=== PATIENT | female | born 1980 | race Caucasian/White ===

== ENCOUNTER 2016-12-29 12:12 | Inpatient (IN) | payer MEDICAID ==
[~2016-12-29] VITALS: Ht 167.6 cm; Wt 61.1 kg
[~2016-12-29 12:12] MED LIST: CEPH500C PO; FLUC150T48 PO; OXYC-466 PO; SULF1TAB7 PO
[2016-12-29] MEDS ORDERED: Dexamethasone 10 mg/mL Inj IV ONE (12:35)
[2016-12-29] MEDS ORDERED: POTASSIUM CHLORIDE IV ONE (12:35)
[2016-12-29] MEDS ORDERED: NACL IV ONE (12:35)
[2016-12-29] MEDS ORDERED: DEXTROSE IV ONE (12:35)
[2016-12-29 12:53] VITALS: BP 98/62; PULSE 93; RESP 18; O2SAT 99
[2016-12-29 14:02] LABS: Mean Corpuscular Hemoglobin 27.5 pg (27.0-35.0); Mean Corpuscular Volume 84.8 fL (81-100)
[2016-12-29] MEDS: Clindamycin 600 mg/50 mL D5W IV SCH ×2 (14:45→21:28)
[2016-12-29] MEDS: HYDROcodone-APAP 7.5-325 mg/15 mL 15 mL Solution PO PRN ×2 (14:57→20:24)
--- NOTE | 2016-12-29 15:41 | DRSVH ---
PROCEDURE: CT NECK SOFT TISSUES WITH CONTRAST ([id number]) INDICATIONS: L PERITONSILLAR ABSCESS TECHNIQUE: After the administration of intravenous contrast, 3.0 mm axial sections acquired from the sella to th e aortic arch. Additional oblique axial 3.0 mm sections acquired through the pharynx. 3 mm thick co fabio reformats were generated. For radiation dose reduction, the following was used: automated exp osure control. COMPARISON: None. FINDINGS: Image quality: Diagnostic. Lymph nodes: Multiple reactive lymph nodes are identified within the back, which are predominately se en within the posterior triangle of the left neck, measuring up to approximately 8 mm in transverse d imension. Vessels: Visualized vasculature appears patent. Neck spaces: There is prominent enlargement of the left palatine tonsil, which measures up to approxi mately 2.3 x 2.5 x 3.6 cm (image 24, series 2). Multiple foci of low attenuation within it this tons il are evident, which appears to be multiloculated with the largest loculated collection measuring up to 1.2 x 0.7 cm along the superior margin of the tonsil. This enlarged tonsil does extend towards t he midline and at least partially effaces the nasopharynx and the oropharynx with approximately 50% n arrowing. Otherwise, the remainder of the airway is widely patent through the hypopharynx. No defin ite fluid is seen extending into the retropharyngeal space or prevertebral space. However, there may be slight edema involving the longus coli muscle, given that it may be slightly more prominent than the right longus coli muscle. The vocal cords, false vocal cords, pyriform sinuses, epiglottis, vallecula, and tongue base all appe ar normal. Extramucosal spaces appear unremarkable. Glands: The parotid and submandibular glands appear normal. Thyroid gland is slightly prominent in size but unremarkable the. Miscellaneous: Visualized brain and orbits appear normal. Minimal scarring within the bilateral divya g apices is present. Upper portions of the mediastinum are unremarkable. There may be mild prominen ce of the wall of the esophagus. Superficial soft tissues appear normal. Bones: No suspicious bony lesions. Visualized sinuses and mastoids appear unremarkable. IMPRESSION: 1. Heterogeneous multiloculated left palatine tonsillar abscess with mild to moderate narrowing of t he nasopharynx and oropharynx. 2. Mild enlargement of the left longus coli muscle compared to the right is nonspecific and may be w ithin normal limits for this patient. The possibility of reactive edema of this muscle related to th e collecting tonsillar abscess cannot be excluded. There is no retropharyngeal/prevertebral fluid co llection or abscess. 3. Reactive lymph nodes within the neck (left greater than right). Dictated by: Chetan Carrillo M.D. on 12/29/2016 at 14:29 Approved by: Chetan Carrillo M.D. on 12/29/2016 at 14:39
--- NOTE | 2016-12-29 16:23 | NUR ---
Admission Pt admitted at [address] Sma Washburn's office for tonsillar abscess. Pt walking and independent in room. Pt states she is 10/10 pain especially with swallowing. Low BP 98/62, other vitals stable. A&O x 3. Looked for IV access and was unable to find vein, so called IV therapy. During admission pt denied history of drug use despite my seeing multiple scabs and bruising over both arms, but when asked directly about arms admitted "I guess I should just be honest I use heroin." Pt also has recent history of MRSA, so swab sent and pt placed on precautions. Gave pt dose of IVP Morphine slowly and then flushed and pt stated "I don't taste that like I normally do" and that it was burning. IV flushes fine and has good return. Left room and then came back and pt stated arm was red. 2 inches proximally to IV was reddened area, but IV was working well, applied heat pack. Pt felt like she had no relief from medication. Called IV therapy to check IV and they agreed it was okay. Gave other IV medications and fluids and IV is infusing well. Educated pt that fluids with potassium can irritate vein and to call if IV site is hurting. Reddened area on arm still present. Gave liquid pain medication in addition to IV. Pt signed behavior contract and sharps container out of room. Addendum: 12/29/16 at 1803 by NALLELY SCHNEIDER RN SCD's placed on pt and [employer] SAL[employer] connected due to ELVIS risk factors and narcotics. Pt sating at 100% on RA. Dexamethasone 4mg 1640 dose not given per MD since larger dose was given at 1430.
[2016-12-29 16:31] VITALS: BP 95/63; PULSE 86; RESP 18; O2SAT 100
[2016-12-29] MEDS ORDERED: Ondansetron 2 mg/mL 2 mL Inj IVPUSH PRN (16:40)
[2016-12-29] MEDS ORDERED: Alum-Mag Hydrox-Simeth 30 mL Suspension PO PRN (16:40)
[2016-12-29] MEDS: Dexamethasone 4 mg/mL Inj IVPUSH SCH ×2 (16:40→20:21)
[2016-12-29] MEDS ORDERED: Polyethylene Glycol (PEG) 17 Gm Powder PO PRN (16:40)
[2016-12-29] MEDS: cefTRIAXone Inj 2,000 MG in Dextrose 5% Minibag Plus 50 ML IV SCH (18:12)
--- NOTE | 2016-12-29 18:21 | NUR ---
Medications Pt felt a burning sensation in body when dexamethasone was given previously. Pt also reported burning in arm when IV morphine was given. Diluted current dose and pushed slowly and pt had no problems, no redness on arm with current dose.
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
--- NOTE | 2016-12-29 18:32 | NUR ---
Urine/Bottom Pt felt burning sensation with urination, notified pt that UA has been sent. Pt also felt like she had a lump in perianal area, did an exam and nothing was noted. Advised pt if it feels worse to let night RN know.
[2016-12-29 19:42] VITALS: BP 97/62; PULSE 62; RESP 18; O2SAT 99
[2016-12-29] MEDS: Famotidine Inj 20 MG in IV Premix 1 EACH IV SCH (20:24)
[2016-12-29 21:03] LABS: APPEARANCE,URINE TURBID (CLEAR,HAZY); COLOR,URINE YELLOW (YELLOW); OCCULT BLOOD,URINE NEGATIVE (NEGATIVE); UROBILINOGEN,URINE NORMAL (NORMAL)
[2016-12-29] MEDS: 0.9% NaCl + KCl 20 mEq/L 1,000 ML IV SCH (23:10)
[2016-12-30] VITALS (8 sets, daily range): BP systolic 98–115; BP diastolic 58–77; PULSE 74–98; RESP 18; O2SAT 98–100
[2016-12-30] MEDS: Clindamycin 600 mg/50 mL D5W IV SCH ×4 (02:38→17:50)
[2016-12-30] MEDS: Dexamethasone 4 mg/mL Inj IVPUSH SCH ×4 (03:06→20:28)
--- NOTE | 2016-12-30 05:05 | NUR ---
Pain Pt c/o throat pain 06/11. Pt given Lortab 7.5/325mg and MS 2 hrs prior. "I am having so much pain." Educated the patient on medication effects and that she should give the medication at least 30 mins to take affect. "You know, I'm a heroin addict and I feel more pain than most people do especially at night." Inquired on what other pain meds would be helpful to help ease her pain and she stated. " That's for the doctor to decide." Patient got upset and stated, " I have to go to the bathroom." Pt snatched off the SCDs and broke the cord. "I only did what I saw other nurses do." Pt refused SCDs. Upon reassessment of Lortab patient was asleep and slept all shift without s/sx of distress or request for more pain meds. care ongoing.
[2016-12-30] MEDS: HYDROcodone-APAP 7.5-325 mg/15 mL 15 mL Solution PO PRN ×5 (05:14→23:20)
[2016-12-30 07:32] LABS: BASOPHILS % (AUTO) 0.1 % (0-3); EOSINOPHILS % (AUTO) 0 % (0-5); MONOCYTES % (AUTO) 1.1 % (4-12); Mean Corpuscular Hemoglobin 27.3 pg (27.0-35.0); Mean Corpuscular Volume 84.5 fL (81-100); NEUTROPHILS % (AUTO) 87.6 % (40-74); Platelet Count 365 bil/L (150-400)
[2016-12-30 08:06] LABS: ERYTHROCYTE SEDIMENTATION RATE 72 mm/hr (0-32)
[2016-12-30] MEDS: Pantoprazole 40 mg ER24 Tablet PO SCH (08:17)
[2016-12-30 08:24] LABS: Magnesium 2.3 mg/dL (1.6-2.6); Phosphorus 2.7 mg/dL (2.5-4.9)
[2016-12-30] MEDS: Famotidine Inj 20 MG in IV Premix 1 EACH IV SCH ×2 (09:06→20:27)
--- NOTE | 2016-12-30 09:59 | NUR ---
Evaluation completed. Please go to "Notes" then click on "Assessments and Notes" (bottom left corner of screen). Then select appropriate discipline tab on top of screen.
--- NOTE | 2016-12-30 10:14 | DRSVH ---
PROCEDURE: X-RAY CHEST, TWO VIEWS ([id number]) INDICATIONS: Possible Aspiration Pneumonitis TECHNIQUE: 2 views of the chest were acquired. COMPARISON: [facility], , CHEST 2VW, 08/12/2014, 13:02. FINDINGS: Surgical changes and devices: None. Lungs and pleura: No pleural effusions or pneumothorax. Lungs are clear. Mediastinum: Mediastinal contours are normal. Heart size is normal. Bones and chest wall: No suspicious bony abnormalities. Soft tissues appear unremarkable. IMPRESSION: No acute cardiopulmonary disease. Dictated by: Toy Noriega [facility] Interpreted: Anna Ramos MD on 12/30/2016 at 10:13 Transcribed by: YESENIA on 12/30/2016 at 10:14 Approved by: Anna Ramos MD, PhD on 12/30/2016 at 16:36
[2016-12-30] MEDS: 0.9% NaCl + KCl 20 mEq/L 1,000 ML IV SCH (12:49)
[2016-12-30] MEDS: cefTRIAXone Inj 2,000 MG in Dextrose 5% Minibag Plus 50 ML IV SCH (15:30)
--- NOTE | 2016-12-30 16:07 | NUR ---
Social Work- Brief Note Data: EMR reviewed. Pt is a 36 year old female admitted 12/29/16 for tonsillar abscess per H&P. Pt's insurance is [facility] Medicaid. Pt's PCP listed is Jarret Howell MD. Pt resides in [place] with MICHELLE Weston where she remains independent with ADLs. Per chart review, Pt has history of IV heroin, benzo, THC, and meth use. Pt has a history of bipolar disorder and depression. Pt has no listed DPOA. SW to follow up regarding Chemical Dependency Assessment and Outpatient Mental Health Resources. Pt anticipated to discharge home with SO. SW to continue to follow. Assessment: Pt who is independent at base. Plan: SW to follow up regarding CD assessment and MH resources. Pt anticipated to discharge home with SO. SW to continue to follow. JUDY Salmeron
--- NOTE | 2016-12-30 16:24 | PROG NOTE ---
[address] [address] PROGRESS NOTE PATIENT: ANGY GARDNER : 1980 MR#: [id number] ADMIT: 12/29/2016 JOB ID: [id number] DATE: SUBJECTIVE: Patient is doing better today. She is able to swallow more effectively. She is having less pain. OBJECTIVE: Left palatine tonsil was less erythemic, a little less swollen. ASSESSMENT: Resolving tonsillitis. PLAN: Watchful waiting. Continue IV antibiotics and steroids with consideration of discharge tomorrow if she is symptomatically much better with followup in our office in approximately two weeks. EVALUATION: The patient understands and agrees with the above treatment plan.
[2016-12-30] MEDS ORDERED: LidocaineVisc 2%:Antacid 1:1 10 mL Syringe PO PRN (17:35)
--- NOTE | 2016-12-30 18:19 | NUR ---
Pain/Withdrawal Pt c/o pain 7-9/10 continually, stating 6/10 is tolerable. Rotating between IVP Morphine and PO Lortab. 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 At ~1730, pt stating "don't feel good," face shiny - sweaty complexion but stating feeling cold, states mild nausea and c/o minor tremors and headache. MD made aware - no new intervention. Pt made aware and is aware of when her next doses are. Continue to monitor - Care continues. Addendum: 12/30/16 at 1824 by APRIL FRIAS RN Pt accepting of care, no behavioral issues this shift.
--- NOTE | 2016-12-30 22:20 | PCM.PNMED ---
Subjective Date of Service Dec 30, 2016 Subjective Patient is having less difficulty swallowing and admits to less pain in the tonsillar area. However, she asked me for more pain medicine and appears to be having some signs of withdrawal. This is despite being on IV morphine and oral narcotics as well. Patient has no other new complaints. Exam Vital Signs Vital Sign - Last Date Time Temp Pulse Resp B/P Pulse Ox O2 Delivery O2 Flow Rate FiO2 12/30/16 19:52 36.8 86 18 102/58 98 Room Air Intake and Output 12/29/16 12/29/16 12/30/16 Cumulative From/Thru 15:00 23:00 07:00 12/29/16 12:52 - 12/30/16 05:48 Intake Total 1073 ml 1558 ml 2631 ml Output Total 250 ml 900 ml 1150 ml Balance 823 ml 658 ml 1481 ml Intake Oral 520 ml 480 ml 1000 ml IV Total 553 ml 1038 ml 1591 ml Tube Irrigant 40 ml 40 ml Output Urine Total 250 ml 900 ml 1150 ml # Bowel Movements 0 0 Exam General: Patient appears somewhat diaphoretic and a little bit more anxious. HEENT: Head is atraumatic and normocephalic. Eyes: Pupils are equally round and reactive to light and accommodation. Extraocular muscles are intact. Sclera are white, anicteric. Subconjunctival mucosa is pink. Ears and nose are unremarkable. Oropharynx: The left tonsillar abscess appears to show less erythema and less swelling. Neck: Is supple, there are no nodes, or masses or tenderness. Chest: Is clear to auscultation and percussion. There are no rales, rhonchi, wheezes or rubs. Heart: Rate, rhythm is regular. There is no murmur, rub or gallop. Abdomen: Good bowel sounds are present. Abdomen is soft, nontender, no organomegaly or masses were appreciated. Extremities: Are symmetrical and well perfused. There is no edema, there is no cellulitis, no rash. Neurologic: There are no focal neurological deficits. Cranial nerves II through XII are intact. There are no sensory or motor deficits. Psychiatric: Patients mood is calm and shows no sign of agitation. Genital: Deferred Rectal: Deferred Lab and Diagnostics Result Diagram: 12/30/1672512/30/16725 Microbiology Blood cultures are pending MRSA screen is pending Aspiration of the left peritonsillar or tonsillar abscess was unsuccessful in obtaining any pus for culture. X-Rays, CTs and MRIs PROCEDURE: CT NECK SOFT TISSUES WITH CONTRAST ([id number]) INDICATIONS: L PERITONSILLAR ABSCESS TECHNIQUE: After the administration of intravenous contrast, 3.0 mm axial sections acquired from the sella to the aortic arch. Additional oblique axial 3.0 mm sections acquired through the pharynx. 3 mm thick coronal reformats were generated. For radiation dose reduction, the following was used: automated exposure control. COMPARISON: None. FINDINGS: Image quality: Diagnostic. Lymph nodes: Multiple reactive lymph nodes are identified within the back, which are predominately seen within the posterior triangle of the left neck, measuring up to approximately 8 mm in transverse dimension. Vessels: Visualized vasculature appears patent. Neck spaces: There is prominent enlargement of the left palatine tonsil, which measures up to approximately 2.3 x 2.5 x 3.6 cm (image 24, series 2). Multiple foci of low attenuation within it this tonsil are evident, which appears to be multiloculated with the largest loculated collection measuring up to 1.2 x 0.7 cm along the superior margin of the tonsil. This enlarged tonsil does extend towards the midline and at least partially effaces the nasopharynx and the oropharynx with approximately 50% narrowing. Otherwise, the remainder of the airway is widely patent through the hypopharynx. No definite fluid is seen extending into the retropharyngeal space or prevertebral space. However, there may be slight edema involving the longus coli muscle, given that it may be slightly more prominent than the right longus coli muscle. The vocal cords, false vocal cords, pyriform sinuses, epiglottis, vallecula, and tongue base all appear normal. Extramucosal spaces appear unremarkable. Glands: The parotid and submandibular glands appear normal. Thyroid gland is slightly prominent in size but unremarkable the. Miscellaneous: Visualized brain and orbits appear normal. Minimal scarring within the bilateral lung apices is present. Upper portions of the mediastinum are unremarkable. There may be mild prominence of the wall of the esophagus. Superficial soft tissues appear normal. Bones: No suspicious bony lesions. Visualized sinuses and mastoids appear unremarkable. IMPRESSION: 1. Heterogeneous multiloculated left palatine tonsillar abscess with mild to moderate narrowing of the nasopharynx and oropharynx. 2. Mild enlargement of the left longus coli muscle compared to the right is nonspecific and may be within normal limits for this patient. The possibility of reactive edema of this muscle related to the collecting tonsillar abscess cannot be excluded. There is no retropharyngeal/prevertebral fluid collection or abscess. 3. Reactive lymph nodes within the neck (left greater than right). Dictated by: Chetan Carrillo M.D. on 12/29/2016 at 14:29 Approved by: Chetan Carrillo M.D. on 12/29/2016 at 14:39 PROCEDURE: X-RAY CHEST, TWO VIEWS ([id number]) INDICATIONS: Possible Aspiration Pneumonitis TECHNIQUE: 2 views of the chest were acquired. COMPARISON: [facility], , CHEST 2VW, 08/12/2014, 13:02. FINDINGS: Surgical changes and devices: None. Lungs and pleura: No pleural effusions or pneumothorax. Lungs are clear. Mediastinum: Mediastinal contours are normal. Heart size is normal. Bones and chest wall: No suspicious bony abnormalities. Soft tissues appear unremarkable. IMPRESSION: No acute cardiopulmonary disease. Dictated by: Toy Noriega [facility] Interpreted: Anna Ramos MD on 12/30/2016 at 10:13 Transcribed by: YESENIA on 12/30/2016 at 10:14 Approved by: Anna Ramos MD, PhD on 12/30/2016 at 16:36 Assessment & Plan The patient is a 36-year-old white female with past medical history significant for substance abuse. Her primary substance of choice is heroin and she generally shoots intravenous heroin approximately $20-$40 worth per day. Also has smoked methamphetamine and and just last night smoked marijuana. If she was feeling poorly she states she has not used IV heroin for 3 days. Patient went to see Dr. Jeanna Coffey last week her primary care doctor. Patient was placed on clindamycin and Diflucan and steroids. Patient states she started feeling a little bit better at that time she had a swollen lymph node on her right side of her neck which was improved. However, the inside of her throat began hurting her on the left side. Patient went to the [facility] emergency room and she felt she was treated poorly. As she felt that the staff there was "judging" her. She therefore left the emergency room and called Dr. Coffey's office to see if she can get an appointment. The patient was squeezed in for an appointment at 4:05pm yesterday afternoon. Dr. Coffey evaluated the patient and determined that she needed to be evaluated by an ear nose and throat physician. The patient was therefore referred to Dr. Washburn's office. Dr. Washburn felt that the patient at a tonsillar abscess he tried to aspirate it in the office and was unsuccessful. The patient was therefore admitted to the hospital service directly for further evaluation and treatment. # The patient has a heterogeneous multiloculated left palatine tonsillar abscess with mild to moderate narrowing of the nasopharynx and oropharynx, present at the time of admission, improving - Appreciate Dr. Washburn's ear nose and throat consultation, follow up and expertise. He has started the patient on high-dose Decadron IV along with IV Clindamycin. We will continue these medications. - We will continue Decadron at 4 mg IV every 6 hours - We will continue Clindamycin and add Rocephin 2 g IV every 24 hours. - We will continue Diflucan 200 mg by mouth daily empirically for candidiasis on the above regimen. - We will place on telemetry as the tonsillar abscess appears to be causing some airway obstruction. - Patient will need continued close nursing observation for any potential further obstruction of airway. - We will ask speech therapy to evaluate her swallowing. Patient is also suffering from dysphagia. - We will add lidocaine viscous swish and spit - We will check daily CBC and chemistry panel. Will also check magnesium and sedimentation rate, C-reactive and procalcitonin in a.m. # History of daily intravenous drug use with her drug of choice being heroin. - Continue morphine IV and oral hydrocodone for pain control. - Continue to Monitor for possible withdrawal. - Patient consents to HIV testing which is pending. She states that she does share needles and has acquired Hepatitis C see from her boyfriend Enrico # History of Hepatitis C - Patient has never been offered any treatment. - Patient counseled on quitting intravenous drug use. - Social service consultation. # History of bipolar disorder and depression, currently not being treated. - Continue close monitoring. - Social service consult for possible help with substance abuse and resources for psychiatric counseling. Disposition: Patient will need to be hospitalized for another 24-48 hours for continued treatment of the above condition. Pain Evaluation: Adequate Pain Control GI Prophylaxis: Proton Pump Inhibitor VTE Prophylaxis: Sub-Q Enoxaparin VTE Mechanical Devices: Intermittant Pneumatic CD Resuscitation Status: CPR: Attempt Resuscitation Cristhian Mills MD Dec 30, 2016 22:19
[2016-12-31] MEDS: Clindamycin 600 mg/50 mL D5W IV SCH ×3 (00:25→11:35)
[2016-12-31 00:31] VITALS: BP 94/58; PULSE 90; RESP 18; O2SAT 98
[2016-12-31] MEDS: HYDROcodone-APAP 7.5-325 mg/15 mL 15 mL Solution PO PRN ×4 (03:18→15:33)
[2016-12-31] MEDS: Dexamethasone 4 mg/mL Inj IVPUSH SCH ×3 (03:18→15:34)
--- NOTE | 2016-12-31 03:35 | NUR ---
Pain/Restlessness Patient asking for PRN pain medications routinely. Receiving Lortab PO and Morphine 2mg IVP [id number] when due. Pain consistently at a 9/10 upon assessment, but noted to be resting with eyes closed upon reassessments/random checks throughout shift. Complaining of feeling "really restless" and asking for something to help with that. Page sent to Dr. Lechuga @ [phone], no new orders as of yet.
[2016-12-31 04:24] VITALS: BP 104/64; PULSE 85; RESP 18; O2SAT 98
[2016-12-31] MEDS: 0.9% NaCl + KCl 20 mEq/L 1,000 ML IV SCH (04:29)
[2016-12-31 05:22] VITALS: PULSE 91
[2016-12-31 05:46] LABS: BASOPHILS % (AUTO) 0.2 % (0-3); EOSINOPHILS % (AUTO) 0.3 % (0-5); MONOCYTES % (AUTO) 2.8 % (4-12); Mean Corpuscular Hemoglobin 27.7 pg (27.0-35.0); Mean Corpuscular Volume 83.5 fL (81-100); NEUTROPHILS % (AUTO) 88.2 % (40-74); Platelet Count 445 bil/L (150-400)
[2016-12-31 06:01] LABS: Magnesium 2.3 mg/dL (1.6-2.6)
[2016-12-31] MEDS: Pantoprazole 40 mg ER24 Tablet PO SCH (07:32)
[2016-12-31] MEDS: Famotidine Inj 20 MG in IV Premix 1 EACH IV SCH (07:32)
[2016-12-31 08:55] VITALS: PULSE 77
[2016-12-31] MEDS ORDERED: LORazepam 0.5 mg Tablet PO PRN (11:30)
--- NOTE | 2016-12-31 11:58 | NUR ---
Social Work- Readiness for Discharge Data: EMR reviewed. Pt is on day 2 of hospitalization for tonsillar abscess per H&P. SW followed up with pt at bedside regarding discharge plan, SW role explained. Pt is medically stable, anticipated discharge later today. Pt's listed PCP is inaccurate, PCP is Jeanna Macedo MD. SW followed up regarding DPOA, pt states she would want her mother to be DPOA. SW to provide paperwork to pt. Per chart review, Pt has history of IV heroin, benzo, THC, and meth use. Pt has a history of bipolar disorder and depression. SW spoke with pt regarding IVDU and MH history. Pt declined speaking with SW regarding this, declined CD assessment. Pt states this is not a concern for her at this time. Pt agreed to SW providing outpatient mental health and CD resources, SW provided this at bedside. Pt states she will discharge home with her boss to transport via POV. No anticipated discharge needs, SW will continue to follow if needs arise. Assessment: Pt who is independent at base. Plan: Pt declined CD assessment, agreeable to outpatient resources which SW provided. Pt to discharge home with boss to transport via POV. No anticipated discharge needs. SW to continue to follow if needs arise. Ivet Mroton, THERMOSTAT REPAIRER
--- NOTE | 2016-12-31 14:13 | PCM.DIMED ---
Discharge Instructions Date of Service Dec 31, 2016 Dates of Hospitalization Dec 29, 2016 at 12:12 Discharge Diagnosis Discharge Diagnosis Left palatine tonsillar abscess with some dysphagia and initial airway obstruction. History of Intravenous drug use with heroin. Diet No restrictions Activity No restrictions Call your provider Fever or Chills, Shortness of breath, Bleeding, Chest pain, Vomitting, Excessive diarrhea, Weakness (unilateral), Other Patient Instructions Patient to stop using intravenous drugs. I recommended that she go to the methadone clinic or Suboxone clinic. I do not think she is motivated to stop using heroin and is probably going to go home at this point AGAINST MEDICAL ADVICE to use heroin. Follow-up Provider: Juan Coffey Follow-up with PCP in: 1 week Provider: Sam Washburn MD Follow-up in: 1 week Additional Information Patient is leaving AGAINST MEDICAL ADVICE before her echocardiogram results were available. The echocardiogram would likely be read this afternoon but she could not wait. She admitted to me that she was craving heroin. She called her significant other "Enrico" to come pick her up. Cristhian Mills MD Dec 31, 2016 14:13
[2016-12-31] MEDS ORDERED: DIF100A PO (14:16)
[2016-12-31] MEDS ORDERED: MTH4T PO (14:16)
[2016-12-31] MEDS ORDERED: CLIN-78 PO (14:16)
--- NOTE | 2016-12-31 15:26 | NUR ---
Social Work- Discharge Data: EMR reviewed. Pt is on day 2 of hospitalization for tonsillar abscess per H&P. Pt is medically stable, ENT has cleared pt for home. Pt declined CD assessment. SW provided outpt CD resources to pt. Pt to discharge home with her boss to transport via POV. No discharge needs. Assessment: Pt who is independent at base. Plan: Pt declined CD assessment, agreeable to outpatient resources which [facility] provided. Pt to discharge home with boss to transport via POV. No discharge needs. Ivet Morton MSW
[2016-12-31] MEDS: cefTRIAXone Inj 2,000 MG in Dextrose 5% Minibag Plus 50 ML IV SCH (15:34)
--- NOTE | 2016-12-31 15:47 | DRSVH ---
[facility] [address] [place] [address] Echocardiogram Report Name: NAGY GARDNER RStudy Date: 12/31/2016 Height: 66 in Hospital Exam Location: [facility] Weight: 135 lb Gender: Female BSA: 1.7 m2 : 1980 Age: 36 yrs BP: 104/64 mmHg Reason For Study: ENDOCARDITIS Ordering Physician: HOSPITALIST COSMOerformed By: Cj Bond Referring Physician: Kiko EVERETT Interpretation Summary 1. Normal left ventricular size, wall thickness and systolic function with an estimated EF of 55 to 60% 2. Normal right ventricular size and systolic function. 3. Mild to moderate tricuspid regurgitation. There is no old study for comparison Procedure: A two-dimensional transthoracic echocardiogram with color flow and Doppler was performed. The study quality was technically good. There is no prior echocardiogram noted for this patient. The patient was in normal sinus rhythm during the exam. Left Ventricle: The left ventricle is normal in size. There is normal left ventricular wall thickness. The ejection fraction is estimated to be 55-60%. There are no focal wall motion abnormalities. Right Ventricle: The right ventricle is normal in size and function. Atria: The left atrium is mildly dilated. Right atrial size is normal. The interatrial septum is intact with no evidence for an atrial septal defect. Mitral Valve: The mitral valve is normal in structure and function. There is mild mitral regurgitation. Aortic Valve: The aortic valve is normal in structure and function. The aortic valve is trileaflet. The aortic valve opens well. No aortic regurgitation is present. Tricuspid Valve: The tricuspid valve is normal in structure but is abnormal in function. There is mild to moderate tricuspid regurgitation. The right ventricular systolic pressure is estimated at 30 mmHg assuming a right atrial pressure of 8 mm Hg. Pulmonic Valve: The pulmonic valve is normal in structure and function. There is trace pulmonic regurgitation. Great Vessels: The aortic root is normal size. The dimensions of the ascending aorta are normal. The pulmonary artery is normal size. The IVC is of normal diameter and collapses less than 50% with a sniff. This suggests a right atrial pressure of 8 mm Hg. Pericardium/ Pleura There is no pericardial effusion. There is no pleural effusion. MMode/2D Measurements & Calculations LVIDd: 5.0 cm LA dimension: 3.2 cm RA long axis Ao root diam LVIDs: 3.6 cm FS: 28.6 % LA A2 area: 19.9 cm RA area Aortic Jxn: 2.2 cm EPSS: 0.49 cm LA A4 area: 21.3 cm asc Aorta Diam IVSd: 0.68 cm LA length (vol) : 15.9 cm LVPWd: 0.75 cm RA vol Ao Arch Diam (Prox LA vol: 69.3 ml : 47.2 ml Trans): 2.8 cm LA vol index RA : 27.9 mm2 IVC diam: 2.0 cm LV lynn. diameter/BSA LV sys. diameter/BSA RVD1 (basal) RVD2 (mid): 3.9 cm (cm/m^2): 3.0 (cm/m^2): 2.1 Doppler Measurements & Calculations Ao V2 max MV E max manan MV E/A: 1.3 TR max manan : 114.9 cm/sec : 71.3 cm/sec Med Peak E' Manan : 235.6 cm/sec Ao max PG MV A max manan TR max P.2 mmHg : 5.3 mmHg : 55.8 cm/sec E/E' med: 6.7 PA V2 max: 68.1 cm/sec Ao mean PG Pulm A Revs Dur PA mean P.2 mmHg : 3.2 mmHg PA Accel Time: 0.12 sec MV A dur: 0.11 sec MV dec time Ao V2 mean PA V2 mean Pulm A Revs Dur - MV A : 0.21 sec : 87.3 cm/sec : 54.6 cm/sec Dur: 0.00 msec Ao V2 VTI PA pr(Accel) : 24.7 cm : 19.1 mmHg Reading Physician:[id number] PM
[2016-12-31 16:03] VITALS: BP 105/68; PULSE 82; RESP 16; O2SAT 100
--- NOTE | 2016-12-31 16:17 | PCM.DIMED ---
Discharge Instructions Date of Service Dec 31, 2016 Dates of Hospitalization Dec 29, 2016 at 12:12 Discharge Diagnosis Discharge Diagnosis Left palatine tonsillar abscess with some dysphagia and initial airway obstruction. History of Intravenous drug use with heroin. Diet No restrictions Activity No restrictions Call your provider Fever or Chills, Shortness of breath, Bleeding, Chest pain, Vomitting, Excessive diarrhea, Weakness (unilateral), Other Patient Instructions Patient to stop using intravenous drugs. I recommended that she go to the methadone clinic or Suboxone clinic. I do not think she is motivated to stop using heroin and is probably going to go home at this point and use heroin. She admitted to craving heroin today. Follow-up Provider: Juan Coffey Follow-up with PCP in: 1 week Provider: Sam Washburn MD Follow-up in: 1 week Cristhian Mills MD Dec 31, 2016 16:17
--- NOTE | 2016-12-31 16:26 | PCM.DC.MED ---
Discharge Summary Date of Service Dec 31, 2016 Dates of Hospitalization Date of Hospital Admission Dec 29, 2016 at 12:12 Date of Discharge: Dec 31, 2016 Providers: Admitting Physician: Sam Washburn MD Primary Care Physician: Rose Howell MD Attending Physician: Sam Washburn MD Diagnosis at Time of Discharge Diagnosis at Time of Discharge Left palatine tonsillar abscess with some dysphagia and initial airway obstruction. History of Intravenous drug use with heroin. Procedures XRay, CTs & MRIs PROCEDURE: CT NECK SOFT TISSUES WITH CONTRAST ([id number]) INDICATIONS: L PERITONSILLAR ABSCESS TECHNIQUE: After the administration of intravenous contrast, 3.0 mm axial sections acquired from the sella to the aortic arch. Additional oblique axial 3.0 mm sections acquired through the pharynx. 3 mm thick coronal reformats were generated. For radiation dose reduction, the following was used: automated exposure control. COMPARISON: None. FINDINGS: Image quality: Diagnostic. Lymph nodes: Multiple reactive lymph nodes are identified within the back, which are predominately seen within the posterior triangle of the left neck, measuring up to approximately 8 mm in transverse dimension. Vessels: Visualized vasculature appears patent. Neck spaces: There is prominent enlargement of the left palatine tonsil, which measures up to approximately 2.3 x 2.5 x 3.6 cm (image 24, series 2). Multiple foci of low attenuation within it this tonsil are evident, which appears to be multiloculated with the largest loculated collection measuring up to 1.2 x 0.7 cm along the superior margin of the tonsil. This enlarged tonsil does extend towards the midline and at least partially effaces the nasopharynx and the oropharynx with approximately 50% narrowing. Otherwise, the remainder of the airway is widely patent through the hypopharynx. No definite fluid is seen extending into the retropharyngeal space or prevertebral space. However, there may be slight edema involving the longus coli muscle, given that it may be slightly more prominent than the right longus coli muscle. The vocal cords, false vocal cords, pyriform sinuses, epiglottis, vallecula, and tongue base all appear normal. Extramucosal spaces appear unremarkable. Glands: The parotid and submandibular glands appear normal. Thyroid gland is slightly prominent in size but unremarkable the. Miscellaneous: Visualized brain and orbits appear normal. Minimal scarring within the bilateral lung apices is present. Upper portions of the mediastinum are unremarkable. There may be mild prominence of the wall of the esophagus. Superficial soft tissues appear normal. Bones: No suspicious bony lesions. Visualized sinuses and mastoids appear unremarkable. IMPRESSION: 1. Heterogeneous multiloculated left palatine tonsillar abscess with mild to moderate narrowing of the nasopharynx and oropharynx. 2. Mild enlargement of the left longus coli muscle compared to the right is nonspecific and may be within normal limits for this patient. The possibility of reactive edema of this muscle related to the collecting tonsillar abscess cannot be excluded. There is no retropharyngeal/prevertebral fluid collection or abscess. 3. Reactive lymph nodes within the neck (left greater than right). Dictated by: Chetan Carrillo M.D. on 12/29/2016 at 14:29 Approved by: Chetan Carrillo M.D. on 12/29/2016 at 14:39 PROCEDURE: X-RAY CHEST, TWO VIEWS ([id number]) INDICATIONS: Possible Aspiration Pneumonitis TECHNIQUE: 2 views of the chest were acquired. COMPARISON: [facility], , CHEST 2VW, 08/12/2014, 13:02. FINDINGS: Surgical changes and devices: None. Lungs and pleura: No pleural effusions or pneumothorax. Lungs are clear. Mediastinum: Mediastinal contours are normal. Heart size is normal. Bones and chest wall: No suspicious bony abnormalities. Soft tissues appear unremarkable. IMPRESSION: No acute cardiopulmonary disease. Dictated by: Toy Noriega [facility] Interpreted: Anna Ramos MD on 12/30/2016 at 10:13 Transcribed by: YESENIA on 12/30/2016 at 10:14 Approved by: Anna Ramos MD, PhD on 12/30/2016 at 16:36 Cardiac Echo Impression Echocardiogram Report Name: ANGY GARDNER RStudy Date: 12/31/2016 Height: 66 in Hospital Exam Location: [facility] Weight: 135 lb Gender: Female BSA: 1.7 m2 : 1980 Age: 36 yrs BP: 104/64 mmHg Reason For Study: ENDOCARDITIS Ordering Physician: HOSPITALIST SVHPerformed By: Cj Bond Referring Physician: Kiko HOWELL Interpretation Summary 1. Normal left ventricular size, wall thickness and systolic function with an estimated EF of 55 to 60% 2. Normal right ventricular size and systolic function. 3. Mild to moderate tricuspid regurgitation. There is no old study for comparison Procedure: A two-dimensional transthoracic echocardiogram with color flow and Doppler was performed. The study quality was technically good. There is no prior echocardiogram noted for this patient. The patient was in normal sinus rhythm during the exam. Left Ventricle: The left ventricle is normal in size. There is normal left ventricular wall thickness. The ejection fraction is estimated to be 55-60%. There are no focal wall motion abnormalities. Right Ventricle: The right ventricle is normal in size and function. Atria: The left atrium is mildly dilated. Right atrial size is normal. The interatrial septum is intact with no evidence for an atrial septal defect. Mitral Valve: The mitral valve is normal in structure and function. There is mild mitral regurgitation. Aortic Valve: The aortic valve is normal in structure and function. The aortic valve is trileaflet. The aortic valve opens well. No aortic regurgitation is present. Tricuspid Valve: The tricuspid valve is normal in structure but is abnormal in function. There is mild to moderate tricuspid regurgitation. The right ventricular systolic pressure is estimated at 30 mmHg assuming a right atrial pressure of 8 mm Hg. Pulmonic Valve: The pulmonic valve is normal in structure and function. There is trace pulmonic regurgitation. Great Vessels: The aortic root is normal size. The dimensions of the ascending aorta are normal. The pulmonary artery is normal size. The IVC is of normal diameter and collapses less than 50% with a sniff. This suggests a right atrial pressure of 8 mm Hg. Pericardium/ Pleura There is no pericardial effusion. There is no pleural effusion. MMode/2D Measurements & Calculations LVIDd: 5.0 cm LA dimension: 3.2 cm RA long axis Ao root diam LVIDs: 3.6 cm FS: 28.6 % LA A2 area: 19.9 cm RA area Aortic Jxn: 2.2 cm EPSS: 0.49 cm LA A4 area: 21.3 cm asc Aorta Diam IVSd: 0.68 cm LA length (vol) : 15.9 cm LVPWd: 0.75 cm RA vol Ao Arch Diam (Prox LA vol: 69.3 ml : 47.2 ml Trans): 2.8 cm LA vol index RA : 27.9 mm2 IVC diam: 2.0 cm LV lynn. diameter/BSA LV sys. diameter/BSA RVD1 (basal) RVD2 (mid): 3.9 cm (cm/m^2): 3.0 (cm/m^2): 2.1 Doppler Measurements & Calculations Ao V2 max MV E max manan MV E/A: 1.3 TR max manan : 114.9 cm/sec : 71.3 cm/sec Med Peak E' Manan : 235.6 cm/sec Ao max PG MV A max manan TR max P.2 mmHg : 5.3 mmHg : 55.8 cm/sec E/E' med: 6.7 PA V2 max: 68.1 cm/sec Ao mean PG Pulm A Revs Dur PA mean P.2 mmHg : 3.2 mmHg PA Accel Time: 0.12 sec MV A dur: 0.11 sec MV dec time Ao V2 mean PA V2 mean Pulm A Revs Dur - MV A : 0.21 sec : 87.3 cm/sec : 54.6 cm/sec Dur: 0.00 msec Ao V2 VTI PA pr(Accel) : 24.7 cm : 19.1 mmHg Reading Physician:03:46 PM Brief History The patient is a 36-year-old white female with past medical history significant for substance abuse. Her primary substance of choice is heroin and she generally shoots intravenous heroin approximately $20-$40 worth per day. Also has smoked methamphetamine and and just last night smoked marijuana. If she was feeling poorly she states she has not used IV heroin for 3 days. Patient went to see Dr. Jeanna Coffey last week her primary care doctor. Patient was placed on clindamycin and Diflucan and steroids. Patient states she started feeling a little bit better at that time she had a swollen lymph node on her right side of her neck which was improved. However, the inside of her throat began hurting her on the left side. Patient went to the [facility] emergency room and she felt she was treated poorly. As she felt that the staff there was "judging" her. She therefore left the emergency room and called Dr. Coffey's office to see if she can get an appointment. The patient was squeezed in for an appointment at 4:05pm yesterday afternoon. Dr. Coffey evaluated the patient and determined that she needed to be evaluated by an ear nose and throat physician. The patient was therefore referred to Dr. Washburn's office. Dr. Washburn felt that the patient at a tonsillar abscess he tried to aspirate it in the office and was unsuccessful. The patient was therefore admitted to the hospital service directly for further evaluation and treatment. Hospital Course The patient is a 36-year-old white female with past medical history significant for substance abuse. Her primary substance of choice is heroin and she generally shoots intravenous heroin approximately $20-$40 worth per day. Also has smoked methamphetamine and and just last night smoked marijuana. If she was feeling poorly she states she has not used IV heroin for 3 days. Patient went to see Dr. Jeanna Coffey last week her primary care doctor. Patient was placed on clindamycin and Diflucan and steroids. Patient states she started feeling a little bit better at that time she had a swollen lymph node on her right side of her neck which was improved. However, the inside of her throat began hurting her on the left side. Patient went to the [facility] emergency room and she felt she was treated poorly. As she felt that the staff there was "judging" her. She therefore left the emergency room and called Dr. Coffey's office to see if she can get an appointment. The patient was squeezed in for an appointment at 4:05pm yesterday afternoon. Dr. Coffey evaluated the patient and determined that she needed to be evaluated by an ear nose and throat physician. The patient was therefore referred to Dr. Washburn's office. Dr. Washburn felt that the patient at a tonsillar abscess he tried to aspirate it in the office and was unsuccessful. The patient was therefore admitted to the hospital service directly for further evaluation and treatment. # The patient has a heterogeneous multiloculated left palatine tonsillar abscess with mild to moderate narrowing of the nasopharynx and oropharynx, present at the time of admission, improving with swelling almost completely resolved on today's exam - Appreciate Dr. Washburn's ear nose and throat consultation, follow up and expertise. He has started the patient on high-dose Decadron IV along with IV Clindamycin. We continued these medications. - We continued Decadron at 4 mg IV every 6 hours - We continued Clindamycin and add Rocephin 2 g IV every 24 hours. - We continued Diflucan 200 mg by mouth daily empirically for candidiasis on the above regimen. - We placed the patient on telemetry as the tonsillar abscess appears to be causing some airway obstruction. - Patient was given close nursing observation for any potential further obstruction of airway. - We asked speech therapy to evaluate her swallowing. Patient is also suffering from dysphagia. - We added lidocaine viscous swish and spit - We checked daily CBC and chemistry panel. Will also checked magnesium and sedimentation rate, C-reactive and procalcitonin. # History of daily intravenous drug use with her drug of choice being heroin. She has a history of polysubstance abuse. - The patient's urine drug screen came back positive for opiates, amphetamines, benzodiazepines and cannabinoids. - We gave morphine IV and oral hydrocodone for pain control. - We continued to Monitor for possible withdrawal. - Patient consented to HIV testing which was negative. She states that she does share needles and has acquired Hepatitis C see from her boyfriend Enrico # History of Hepatitis C - Patient has never been offered any treatment. - Patient counseled on quitting intravenous drug use. - Social service consultation. # History of bipolar disorder and depression, currently not being treated. - Continue close monitoring. - Social service consult for possible help with substance abuse and resources for psychiatric counseling. Disposition: Patient will be discharged home today on oral antibiotics with clindamycin and Diflucan and a Medrol Dosepak. Exam Vital Signs (Last) Date Time Temp Pulse Resp B/P Pulse Ox O2 Delivery O2 Flow Rate FiO2 12/31/16 16:03 36.7 82 16 105/68 100 Room Air Exam General: Patient is extremely anxious to go home and was threatening to leave AGAINST MEDICAL ADVICE. However, her ride would not pick her up until she was officially discharged. Patient admits she is craving heroin. He was given some Ativan to help curb her anxiety. However, this was not effective. HEENT: Head is atraumatic and normocephalic. Eyes: Pupils are equally round and reactive to light and accommodation. Extraocular muscles are intact. Sclera are white, anicteric. Subconjunctival mucosa is pink. Ears and nose are unremarkable. Oropharynx: The left tonsillar abscess/swelling is markedly improved and the tonsillar tissue almost appears completely normalized. Neck: Is supple, there are no nodes, or masses or tenderness. Chest: Is clear to auscultation and percussion. There are no rales, rhonchi, wheezes or rubs. Heart: Rate, rhythm is regular. There is no murmur, rub or gallop. Abdomen: Good bowel sounds are present. Abdomen is soft, nontender, no organomegaly or masses were appreciated. Extremities: Are symmetrical and well perfused. There is no edema, there is no cellulitis, no rash. There are multiple track rivera evident Neurologic: There are no focal neurological deficits. Cranial nerves II through XII are intact. There are no sensory or motor deficits. Psychiatric: Patients mood is calm and shows no sign of agitation. Genital: Deferred Rectal: Deferred Test 12/29/16 12:45 12/29/16 12:47 12/30/16 07:26 12/31/16 05:30 Urine Color Yellow (YELLOW) Urine Appearance Turbid (CLEAR,HAZY) Urine pH 6.0 (5.0-8.0) Urine Specific Ryder 1.025 (1.003-1.035) Urine Protein 30mg/dL (NEG,TRACE) Urine Glucose (UA) Negativemg/dL (NEGATIVE) Urine Ketones Negativemg/dL (NEGATIVE) Urine Occult Blood Negative (NEGATIVE) Urine Nitrite Negative (NEGATIVE) Urine Bilirubin Negative (NEGATIVE) Urine Urobilinogen Normalmg/dL (NORMAL) Urine Leukocyte Esterase Negative (NEGATIVE) Urine RBC 0-2/hpf (0-2) Urine WBC 0-5/hpf (0-5) Urine Epithelial Cells Occasional/hpf (NONE-MOD) Urine Crystals None seen (NONE SEEN) Urine Bacteria None/hpf (NONE-FEW) Urine Hyaline Casts None/lpf (NONE) Urine Granular Casts None seen (NONE SEEN) Urine Waxy Casts None seen (NONE SEEN) Urine Red Blood Cell Casts None seen (NONE SEEN) Urine White Blood Cell Casts None seen (NONE SEEN) Urine Mucus None seen (None Seen) Urine Trichomonas None seen (NONE SEEN) Urine Yeast None (NONE SEEN) Urinalysis Comment None Urine Culture Reflexed Not indicated Urine Opiates Screen Positive Urine Methadone Screen Negative Urine Barbiturates Screen Negative Urine Amphetamines Screen Positive Urine Benzodiazepines Screen Positive Urine Cocaine Metabolite Screen Negative Urine Cannabinoids Screen Positive Urine HCG, Qualitative Negative (Negative) Hold Urine Received (Received) Erythrocyte Sedimentation Rate 72mm/hr (0-32) Phosphorus Level 2.7mg/dL (2.5-4.9) C-Reactive Protein 8.6mg/dL (0.0-0.5) Procalcitonin 0.18ng/mL (0.00-0.08) Thyroid Stimulating Hormone (TSH) 0.222uIU/mL (0.450-4.500) HIV (1&2) Ag and Ab, 4th Generation Non reactive (Non Reactive) White Blood Count 20.9th/mm3 (3.8-10.1) Red Blood Count 3.39mil/mm3 (3.90-5.20) Hemoglobin 9.4g/dL (12.0-15.6) Hematocrit 28.3% (35.0-46.0) Mean Corpuscular Volume 83.5fL (81-100) Mean Corpuscular Hemoglobin 27.7pg (27.0-35.0) Mean Corpuscular Hemoglobin Concent 33.2% (32.0-37.0) Red Cell Distribution Width 14.8% (12.3-15.4) Platelet Count 445bil/L (150-400) Neutrophils (%) (Auto) 88.2% (40-74) Lymphocytes (%) (Auto) 7.8% (14-46) Monocytes (%) (Auto) 2.8% (4-12) Eosinophils (%) (Auto) 0.3% (0-5) Basophils (%) (Auto) 0.2% (0-3) Sodium Level 139mEq/L (134-144) Potassium Level 4.9mEq/L (3.5-5.2) Chloride Level 108mEq/L (97-108) Carbon Dioxide Level 17mmol/L (18-29) Blood Urea Nitrogen 13mg/dL (6-20) Creatinine 0.48mg/dL (0.57-1.00) Estimat Glomerular Filtration Rate 208mL/min (>59) Glucose Level 134mg/dL (60-99) Calcium Level 8.3mg/dL (8.5-10.1) Magnesium Level 2.3mg/dL (1.6-2.6) Total Bilirubin 0.3mg/dL (0.0-1.2) Aspartate Amino Transf (AST/SGOT) 17U/L (0-50) Alanine Aminotransferase (ALT/SGPT) 16U/L (0-32) Alkaline Phosphatase 82U/L (25-150) Total Protein 6.6g/dL (6.4-8.4) Albumin 3.0g/dL (3.4-5.0) Microbiology Results Blood cultures are pending MRSA screen is pending Aspiration of the left peritonsillar or tonsillar abscess was unsuccessful in obtaining any pus for culture. Discharge Medications Discharge Medications Clindamycin (Clindamycin) 300 Mg Capsule 300 MG PO QID Prescribed by: FRANDY MILLS MD Fluconazole (Diflucan) 100 Mg Tab 200 MG PO DAILY Prescribed by: FRANDY MILLS MD Methylprednisolone (Medrol) 21 Tab/Pkg Tablet 1 TAB PO UD Follow package instructions Prescribed by: FRANDY MILLS MD Followup Plan Disposition: The patient is being discharged home. Discharge Diet: No restrictions Discharge Activity: No restrictions Patient Instructions Patient to stop using intravenous drugs. I recommended that she go to the methadone clinic or Suboxone clinic. I do not think she is motivated to stop using heroin and is probably going to go home at this point and use heroin. She admitted to craving heroin today. Follow-up Provider: Juan Coffey Follow-up with PCP in: 1 week Provider: Sam Washburn MD Follow-up in: 1 week Time spent Time spent on discharging this patient was greater than 35 minutes, over half of which was involved in counseling and coordination of care. Cristhian Mills MD Dec 31, 2016 16:26
--- NOTE | 2016-12-31 16:40 | NUR ---
Discharge Patient DC to home via boyfriend/boss? as transportation. Patient extremely anxious to leave and decline any discharge education, saying "I've been through this a million times." Advised patient that prescriptions have been sent electronically to pharmacy on record and need to be taken as prescribed. IV access DC'd intact after last dose of IV antibiotics given. This RN notified primary RN that patient refused discharge education.
== END 2016-12-31 16:40 | disposition home or self-care (01) | DRG 153 ==
LOC: OSC 12:12
PROVIDERS: ADMIT Otolaryngology; ATTEND Internal Medicine Infectious Disease
DX: J36 Peritonsillar abscess (principal); R13.10 Dysphagia, unspecified; F11.10 Opioid abuse, uncomplicated; B19.20 Unspecified viral hepatitis C without hepatic coma; F15.10 Other stimulant abuse, uncomplicated; F12.10 Cannabis abuse, uncomplicated; F17.200 Nicotine dependence, unspecified, uncomplicated

== ENCOUNTER 2017-06-26 22:26 | Emergency (ER) | payer MEDICAID ==
[~2017-06-26] VITALS: Ht 167.6 cm; Wt 60.0 kg
[~2017-06-26 22:26] MED LIST changes: -CEPH500C PO; +CLIN-78 PO; +DIF100A PO; -FLUC150T48 PO; +MTH4T PO; -OXYC-466 PO; -SULF1TAB7 PO
[2017-06-26 22:32] VITALS: BP 123/84; PULSE 87; RESP 18; O2SAT 100
--- NOTE | 2017-06-27 00:37 | ED.REPORT ---
HPI-Rash / Abscess Date of Service Jun 27, 2017 ED Provider: Kerwin Pacheco DO Pt is a 37 year old female with a history of IV heroin use and abscesses who presents to the ED complaining of multiple abscesses to her arms bilaterally onset 1 month ago. The last time she used heroin was yesterday morning. Pt also reports other abscesses that have been present for 3 months, while others are more recent. She states that she is currently safe, and expresses interest in a methadone or suboxone program. Pt denies , stating that she has a history of hysterectomy. Nursing Notes Stated Complaint: ABSCESS Chief Complaint: Skin Rash/Abscess Nursing Notes Reviewed: Yes Allergies: Coded Allergies: Penicillins (Verified Allergy, Severe, REPORTED TO TOLERATE KEFLEX, ) Scheduled Clindamycin (Clindamycin) 300 Mg Capsule 300 MG PO QID Fluconazole (Diflucan) 100 Mg Tab 200 MG PO DAILY Methylprednisolone (Medrol) 21 Tab/Pkg Tablet 1 TAB PO UD Follow package instructions General Time Seen by MD: 00:37 Chief Complaint Abscess Hx Obtained From: Patient Arrived By: Walk-in Onset Occurred: More than a week ago... (1 month) Symptom Duration: Since onset Location: : Arm Quality: Painful Severity: Current: Moderate Severity: Maximum: Moderate Recent Healthcare: No recent doctor visit, No recent hospitalization Similar Sx Previous: Yes Past Medical History Past Medical History Strong suspicion of Hep C initial tests negative. Prior pyelonephritis Pneumonia. Bipolar per old records though patient allegedly denies this. Anxiety Abscesses Reports: IV Drug use Past Surgical History Skin grafts to ear and arm Ureter stent Cholecystectomy Hysterectomy Family History Noncontributory Smoking History Current Every Day Smoker Social History Heroin- daily user Alcohol Use: Denies alcohol use Drug Use: THC Other Social History: Local resident Occupation in , homeless Ambulatory Status Independent Review of Systems Constitutional: Denies: Fever Musculoskeletal: Reports: Extremity pain, Extremity swelling Skin: Reports Swelling Complete sys rev & neg: except as marked. Physical Exam Initial Vital Signs Vital Signs (First) Date Time Temp Pulse Resp B/P Pulse Ox O2 Delivery O2 Flow Rate FiO2 06/26/17 22:32 36.9 87 18 123/84 100 Room Air Initial VS: Reviewed Head / Eyes: Atraumatic, Normocephalic Neck: Supple, Full range of motion Respiratory: Breath sounds normal, Clear to auscultation, No respiratory distress Cardiovascular: Regular rate & rhythm, Heart sounds normal, Intact distal pulses Abdomen / GI: Soft, Non-tender Extremities: Vascular intact, Neuro intact Neurologic: Alert, Oriented, Nonfocal Psychiatric: Mood/affect normal, Behavior normal General/Constitutional: Awake, Alert, No acute distress Skin: Warm, Dry Multiple areas of induration from prior injections. Abscess with fluctuance to right forearm, and dorsal aspect of right and left hand. Procedures Incision & Drainage Abscess Time: 01:42 Procedure Performed by: ED physician Consent / Setup / Site Prep: Consent from patient, Time-out performed, Hand hygiene observed, Stand sterile technique, Standard surgical scrub, Sterile drapes applied Location of Abscess: Right hand Skin Preparation Agent: Betadine Local Anesthesia: Bupivacaine 0.5% Pus Drained: Small Irrigation: Yes, Copious Post-Procedure / Complications: Drain placed, Culture obtained, Gram stain ordered, Dressing applied, No complications, Condition improved, Tolerated procedure well, Patient stable Time: 01:50 Procedure Performed by: ED physician Consent / Setup / Site Prep: Consent from patient, Time-out performed, Hand hygiene observed, Stand sterile technique, Standard surgical scrub, Sterile drapes applied Location of Abscess: Forearm, right Skin Preparation Agent: Betadine Local Anesthesia: Bupivacaine 0.5% Pus Drained: Small Irrigation: Yes, Copious Post-Procedure / Complications: Drain placed, Culture obtained, Gram stain ordered, Dressing applied, No complications, Condition improved, Tolerated procedure well, Patient stable Time: 01:55 Procedure Performed by: ED physician Consent / Setup / Site Prep: Consent from patient, Time-out performed, Hand hygiene observed, Stand sterile technique, Standard surgical scrub, Sterile drapes applied Location of Abscess: Left hand Skin Preparation Agent: Betadine Local Anesthesia: Bupivacaine 0.5% Pus Drained: Small Irrigation: Yes, Copious Post-Procedure / Complications: Drain placed, Culture obtained, Gram stain ordered, Dressing applied, No complications, Condition improved, Tolerated procedure well, Patient stable Re-Eval/Medical Decision Source of Hx: Old records Re-Evaluation/Progress #1: Time of Eval: 01:20 Re-Evaluation/Progress Note: Informed pt of plan to clean and drain abscesses. Pt understands and agrees with plan. All questions addressed. Re-Evaluation/Progress #2: Time of Eval: 01:42 Re-Evaluation/Progress Note: Pt rechecked. Drained pt's abscess with her consent. Informed pt of plan for discharge. Pt understands and agrees with plan for discharge. F/U instructions and RTER warnings given. All questions addressed. Counseled Regarding: Diagnosis, Need for follow-up, When/why to return to ED Discharge & Departure Impression: Primary Impression: Abscess Additional Impressions: Cellulitis Site of cellulitis: unspecified site Qualified Code: L03.90 - Cellulitis, unspecified Heroin abuse Disposition: Home Discharge Condition All VS Reviewed: Yes Condition: Stable Patient Instructions: Abscess (ED), Cellulitis (ED) Additional Instructions: Clindamycin 4x daily for 5 days. Have your wounds rechecked in 48 hours at the referral surgeon. Call Jennifer Linn tomorrow for a follow up appointment this week. Do not abuse any drugs tonight as you have received sedating medication. Do not drive tonight. Return to the Emergency Department for any new or worrisome symptoms. Referrals: SARKIS EVERETT MD (PCP) Nacho Hernandez MD [facility] Scribe Attestation Portions of this note were transcribed by Elinor Munoz. I, Dr. Pacheco personally performed the history, physical exam and medical decision-making; I reviewed and confirmed the accuracy of the information in the transcribed note. Signed by : Capri Moses, 06/26/17. copies to: SARKIS EVERETT MD, Todd P DO Jun 27, 2017 00:37 Elinor Baum Jun 27, 2017 01:26
[2017-06-27] MEDS ORDERED: Lidocaine 1% 50 mL Inj NERVEBLOCK ONE (01:25)
[2017-06-27] MEDS ORDERED: HYDROmorphone 1 mg/mL Inj IM ONE (02:05)
== END 2017-06-27 03:45 | disposition home or self-care (01) ==
LOC: SED 22:26
DX: L02.413 Cutaneous abscess of right upper limb (principal); L02.414 Cutaneous abscess of left upper limb; L03.113 Cellulitis of right upper limb; L03.114 Cellulitis of left upper limb; F11.10 Opioid abuse, uncomplicated; F31.9 Bipolar disorder, unspecified; F41.9 Anxiety disorder, unspecified; F17.200 Nicotine dependence, unspecified, uncomplicated; Z96.0 Presence of urogenital implants; Z87.01 Personal history of pneumonia (recurrent); Z90.710 Acquired absence of both cervix and uterus; Z59.0 Homelessness; Z88.0 Allergy status to penicillin
CPT/HCPCS: 10060; 96372; 99283; J1170